=== PATIENT | female | born 1995 | race Caucasian/White ===

== ENCOUNTER 2017-05-15 18:42 | Emergency (ER) | payer OTHER ==
[~2017-05-15] VITALS: Ht 152.4 cm; Wt 45.4 kg
[~2017-05-15 18:42] MED LIST: BIRTH CONTROL1 EACH PO; DEBROX 15 ML15 M1 OT; DEPO PROVER150 MG/M1 IM; KEFLEX500 MG PO; Kenalog 0.5% Cr15 GM T; MACROBID100 M1 PO; MOTRIN400 MG PO; MOTRIN800 MG PO; NORCO 325 MG-51 TAB PO; PEN-VK500 MG PO; PEPCID20 MG PO; PERCOCET 325 MG1 TA2 PO; PRENATAL1 TA7 PO; PREVACID30 M1 PO; PRILOSEC40 MG PO; SERTRALINE HYDR25 MG PO; SERTRALINE HYDR50 MG PO; SERTRALINE100 MG PO; TOBREX OPHTH S2.5 ML OPH; VISTARIL50 MG PO; [UNRECOGNIZED DRUG - OTHER]
[2017-05-15 18:50] VITALS: BP 112/58
[2017-05-15 19:08] LABS: BASO # 0.1 10*3/uL (0.0-0.1); BASO % 0.7 % (0.0-1.0); EOS % 0.2 % (1.0-4.0); HEMATOCRIT 38.2 % (37.0-47.0); HEMOGLOBIN 13.3 g/dl (12.0-16.0); LYMPH # 2.7 10*3/uL (1.3-4.4); LYMPH % 29.5 % (27.0-41.0); MEAN CORPUSCULAR HGB 29.2 pg (27.0-31.0); MEAN CORPUSCULAR HGB CONC 34.8 g/dl (33.0-37.0); MEAN PLATELET VOLUME 11.8 fl (9.6-12.3); MONO # 0.4 10*3/uL (0.1-1.0); MONO % 4.7 % (3.0-9.0); NEUT # 5.9 10*3/uL (2.3-7.9); NEUT % 64.6 % (47.0-73.0); PLATELET COUNT AUTOMATED 216 10*3/uL (130-400); RED BLOOD COUNT 4.55 10*6/uL (4.10-5.10); RED CELL DISTRI WIDTH 12.3 % (0-14.5); WHITE BLOOD COUNT 9.1 10*3/uL (4.8-10.8)
[2017-05-15 19:16] LABS: BILIRUBIN NEGATIVE (NEGATIVE); BLOOD NEGATIVE (NEGATIVE); CLARITY SL CLOUDY (CLEAR); COLOR YELLOW (YELLOW); GLUCOSE NEGATIVE (NEGATIVE); KETONE 1+ (NEGATIVE); LEUKO ESTERASE NEGATIVE (NEGATIVE); NITRITE NEGATIVE (NEGATIVE); PROTEIN NEGATIVE (NEGATIVE); SPECIFIC GRAVITY 1.025 (1.005-1.030); UROBILINOGEN 0.2 E.U./dl (0.2-1.0)
[2017-05-15 19:23] LABS: ALBUMIN 3.9 gm/dl (3.1-4.5); ALKALINE PHOSPHATASE 63 U/L (45-117); BILIRUBIN, TOTAL 0.9 mg/dl (0.2-1.0); BUN 8 mg/dl (7-24); CARBON DIOXIDE 24 mmol/L (21-32); EST GLOM FILT AFRICAN AMERICAN > 60 ml/min; GLUCOSE 103 mg/dL (65-99); SGOT/AST 12 IU/L (3-35); SGPT/ALT 17 U/L (12-78); TOTAL PROTEIN 6.9 gm/dL (6.4-8.2)
[2017-05-15 19:25] LABS: MUCOUS 1+
[2017-05-15 19:26] LABS: BACTERIA TRACE
[2017-05-15 19:27] LABS: URINE REFLEX COMMENT NO (NO)
[2017-05-15 19:47] LABS: CHLORIDE 105 mmol/L (98-107); POTASSIUM 3.5 mmol/L (3.5-5.1); SODIUM 138 mmol/L (136-145)
== END 2017-05-15 20:05 | disposition home or self-care (01) ==
LOC: ED 18:42
PROVIDERS: Nurse Practitioner Family
DX: O21.0 Mild hyperemesis gravidarum (principal)

== ENCOUNTER 2017-06-03 17:42 | Emergency (ER) | payer OTHER ==
[~2017-06-03] VITALS: Wt 45.4 kg
[2017-06-03 17:49] VITALS: BP 103/66
[2017-06-03] MEDS ORDERED: ELIMITE 5%60 GM T (18:08)
== END 2017-06-03 18:12 | disposition home or self-care (01) ==
LOC: ED 17:42
DX: O26.891 Other specified pregnancy related conditions, first trimester (principal); R21 Rash and other nonspecific skin eruption; Z90.49 Acquired absence of other specified parts of digestive tract; Z79.899 Other long term (current) drug therapy; Z3A.09 9 weeks gestation of pregnancy

== ENCOUNTER 2020-04-20 20:09 | Emergency (ER) | payer OTHER ==
[~2020-04-20] VITALS: Ht 152.4 cm; Wt 44.5 kg
[~2020-04-20 20:09] MED LIST changes: +ELIMITE 5%60 GM T
[2020-04-20 20:18] VITALS: BP 119/67
[2020-04-20] MEDS ORDERED: SEPTDS PO (21:29)
[2020-04-20] MEDS ORDERED: CEPHALEXIN500 M1 PO (21:29)
== END 2020-04-20 22:01 | disposition home or self-care (01) ==
LOC: ED 20:09
DX: N61.0 Mastitis without abscess (principal); J45.909 Unspecified asthma, uncomplicated; Z79.899 Other long term (current) drug therapy

== ENCOUNTER → 2020-05-12 | Outpatient (CLI) | payer OTHER ==
[~2020-05-12] MED LIST changes: +CEPHALEXIN500 M1 PO; +SEPTDS PO
== END | disposition home or self-care (01) ==
LOC: US 05-02 12:30
DX: N63.0 Unspecified lump in unspecified breast (principal)

== ENCOUNTER → 2020-05-30 | Outpatient (CLI) | payer OTHER | END | disposition home or self-care (01) | LOC: US 16:00 | DX: N93.9 Abnormal uterine and vaginal bleeding, unspecified (principal) ==

== ENCOUNTER 2020-09-24 19:07 | Emergency (ER) | payer OTHER ==
[~2020-09-24] VITALS: Ht 152.4 cm; Wt 45.4 kg
[2020-09-24 19:18] VITALS: BP 124/65
== END 2020-09-24 19:43 | disposition home or self-care (01) ==
LOC: ED 19:07
DX: L50.9 Urticaria, unspecified (principal); Z79.899 Other long term (current) drug therapy

== ENCOUNTER 2021-02-16 16:13 | Emergency (ER) | payer OTHER ==
[~2021-02-16] VITALS: Ht 152.4 cm; Wt 46.7 kg
[2021-02-16 16:18] VITALS: BP 109/56
[2021-02-16] MEDS ORDERED: MEDROL DOSEPAK4 MG PO (18:31)
[2021-02-16] MEDS ORDERED: Motrin,Rufen800 MG PO (18:31)
== END 2021-02-16 18:57 | disposition home or self-care (01) ==
LOC: ED 16:13
DX: M54.16 Radiculopathy, lumbar region (principal); F41.9 Anxiety disorder, unspecified; J45.909 Unspecified asthma, uncomplicated; Z79.899 Other long term (current) drug therapy

== ENCOUNTER 2021-06-26 17:33 | Emergency (ER) | payer OTHER ==
[~2021-06-26] VITALS: Ht 152.4 cm; Wt 46.3 kg
[~2021-06-26 17:33] MED LIST changes: +MEDROL DOSEPAK4 MG PO; +Motrin,Rufen800 MG PO
[2021-06-26 18:16] VITALS: BP 96/61
[2021-06-26] MEDS ORDERED: VISTARIL25 MG PO (19:09)
[2021-06-26] MEDS ORDERED: KENALOG 0.025%15 GM T (19:09)
== END 2021-06-26 19:12 | disposition home or self-care (01) ==
LOC: ED 17:33
DX: L25.9 Unspecified contact dermatitis, unspecified cause (principal)

== ENCOUNTER 2021-08-14 09:39 | Emergency (ER) | payer OTHER ==
[~2021-08-14] VITALS: Ht 152.4 cm; Wt 46.3 kg
[~2021-08-14 09:39] MED LIST changes: +KENALOG 0.025%15 GM T; +VISTARIL25 MG PO
[2021-08-14 10:07] VITALS: BP 112/65
[2021-08-14 11:00] LABS: BASO % 0.3 % (0.0-1.0); EOS % 0.1 % (1.0-4.0); HEMATOCRIT 45.4 % (37.0-47.0); LYMPH # 1.9 10*3/uL (1.3-4.4); LYMPH % 14.8 % (27.0-41.0); MEAN CORPUSCULAR HGB 29.6 pg (27.0-31.0); MEAN CORPUSCULAR HGB CONC 33.3 g/dl (33.0-37.0); MEAN PLATELET VOLUME 11.8 fl (9.6-12.3); MONO # 0.6 10*3/uL (0.1-1.0); MONO % 5.1 % (3.0-9.0); NEUT % 79.3 % (47.0-73.0); PLATELET COUNT AUTOMATED 318 10*3/uL (130-400); RED CELL DISTRI WIDTH 12.2 % (0-14.5); WHITE BLOOD COUNT 12.7 10*3/uL (4.8-10.8)
[2021-08-14 11:18] LABS: ALKALINE PHOSPHATASE 77 U/L (45-117); BUN 9 mg/dl (7-24); CHLORIDE 109 mmol/L (98-107); CREATININE 0.62 mg/dL (0.55-1.02); LIPASE 78 U/L (73-393); SGOT/AST 10 IU/L (3-35); SGPT/ALT 18 U/L (12-78); SODIUM 138 mmol/L (136-145); TOTAL PROTEIN 7.5 gm/dL (6.4-8.2)
[2021-08-14 15:22] LABS: BILIRUBIN Negative (Negative); BLOOD 2+ (Negative); CLARITY Clear (Clear); COLOR Yellow (Yellow); GLUCOSE Negative (Negative); KETONE Negative (Negative); LEUKO ESTERASE 2+ (Negative); NITRITE Negative (Negative); PH 5.5 (4.5-8.0); SPECIFIC GRAVITY >= 1.030 (1.001-1.030); UROBILINOGEN 0.2 E.U./dl (0.0-1.0)
[2021-08-14 15:45] LABS: BACTERIA 1+; EPITHELIAL CELLS 21-30; WBC TNTC wbc/hpf (0-5)
[2021-08-14] MEDS ORDERED: PYRIDIUM200 M1 PO (16:07)
[2021-08-14] MEDS ORDERED: SEPTDS PO (16:07)
== END 2021-08-14 16:46 | disposition home or self-care (01) ==
LOC: ED 09:39
PROVIDERS: Physician Assistant
DX: N83.201 Unspecified ovarian cyst, right side (principal); N39.0 Urinary tract infection, site not specified

== ENCOUNTER → 2021-12-05 | Outpatient (CLI) | payer OTHER ==
[~2021-12-05] MED LIST changes: +PYRIDIUM200 M1 PO
== END | disposition home or self-care (01) ==
LOC: COVID19 15:49
PROVIDERS: ATTEND Internal Medicine
DX: U07.1 COVID-19 (principal)